=== PATIENT | male | born 1975 | race Caucasian/White ===

== ENCOUNTER 2023-04-29 15:48 | Emergency (ER) | payer OTHER, SELFPAY ==
[2023-04-29 15:55] VITALS: BP 133/95; PULSE 117; RESP 18; TEMP 36.1; O2SAT 100; BMI 32.1
--- NOTE | 2023-04-29 16:11 | ED.GENADULT ---
HPI - General Adult General Chief complaint: Arrhythmia/Palpitations Stated complaint: heart pal, shortness of breath Time Seen by Provider: 04/29/23 15:58 History of Present Illness HPI narrative: Pt here for eval of heart palpitations since 1514 today with SOB. Pt was walking up steps and noticed the symptoms, states he has hx of anxiety so is unsure if this is exacerbating symptoms. Denies fevers, CP, recent illness. 47-year-old man presenting to the emergency department with concern of rapid heart rate that had started about 45 minutes, maybe an hour prior to this interview. He had been walking up the steps and then noticed the symptoms and began to feel more short of breath. Did have some tightness in his chest. Not pleuritic. Not actually with chest pain. No cough or cold symptoms recently. No fevers. Does endorse a history of attacks of anxiety. Generally is without exercise intolerance. No personal or family history of hypertrophic cardiomyopathy or fatal arrhythmias. Does not drink alcohol or take stimulants. No loss of function or sensation peripherally. Related Data Home Medications Medication Instructions Recorded Confirmed escitalopram oxalate 20 mg tablet 20 mg PO QAM 04/29/23 04/29/23 Previous Rx's Medication Instructions Recorded propranolol 20 mg tablet 20 mg PO TID PRN 04/29/23 Palpitations/anxiety #30 tabs Allergies Allergy/AdvReac Type Severity Reaction Status Date / Time No Known Drug Allergies Allergy Verified 04/29/23 15:54 Review of Systems Status of ROS: Reports: 6 or more systems reviewed and unremarkable except as noted in History and below [facility] Social History Smoking Status: Never smoker How often do you have a drink containing alcohol: never AUDIT-C Alcohol total score: 0 Non-prescribed substance use: denies use Exam Narrative: Exam Narrative: Very pleasant. Introspective. Easily conversant. Breathing initially I thought was maybe a little labored but calms. Heart rate initially elevated, frankly tachycardic on an of the room does slow to normal during our conversation. Cranial nerves 2-12 are WNL. Neck is supple without supraclavicular crepitus. Lungs are clear. Heart in regular rate and rhythm without murmur rub or gallop. Normal PMI. No discomfort to palpation over the chest. Moving extremities normally without edema. Negative Homans. EKG shows a sinus tachycardia Const: Vital Signs, click to edit/add: Vital Signs - 24 hr 04/29/23 15:55 04/29/23 17:00 Temperature 97.0 F L Pulse Rate 76 Pulse Rate [Pulse Oximeter] 117 H Respiratory Rate 18 15 Blood Pressure 133/92 H Blood Pressure [Ri ght Upper Arm] 133/95 H Pulse Oximetry 100 94 Oxygen Delivery Me thod Room Air Documenting provider has reviewed patient's vital signs: yes Course Vital Signs Vital signs: Initial Vital Signs Respiratory Effort Normal, Spontaneous, Non-Labored 04/29/23 15:54 Respiratory Depth Normal 04/29/23 15:54 Respiratory Pattern Normal 04/29/23 15:54 Vital Signs Temperature 97.0 F L 04/29/23 15:55 Pulse Rate 117 H 04/29/23 15:55 Respiratory Rate 18 04/29/23 15:55 Blood Pressure 133/95 H 04/29/23 15:55 Pulse Oximetry 100 04/29/23 15:55 Oxygen Delivery Method Room Air 04/29/23 15:55 Temperature 97.0 F L 04/29/23 15:55 Pulse Rate 76 04/29/23 17:00 Respiratory Rate 15 04/29/23 17:00 Blood Pressure 133/92 H 04/29/23 17:00 Pulse Oximetry 94 04/29/23 17:00 Oxygen Delivery Method Room Air 04/29/23 15:55 Medical Decision Making MDM Narrative Medical decision making narrative: After long conversation with Mr. Main I am in agreement with him that the symptoms today are likely related to anxiety. Admittedly this is somewhat a diagnosis of exclusion. Other cardiac risk factors though are not present. Monitored during time in the emergency department without other development. And during conversation could appreciate tachycardia evolving and then slowing. Differential would also include pulmonary embolus or pneumothorax though the symptoms spontaneously resolve and risk of the former would be quite low risk. Doubtful electrolyte abnormalities contributing to symptoms today. EKG overall is reassuring We did discuss potentially doing further evaluation here but symptoms appear to be limited he feels improved in reassured. Discussed management of anxiety. Potential benefit of propranolol? See patient discharge plan ECG Data Attestation: I personally reviewed and interpreted this ECG as follows: (Sinus tachycardia rate of 102. No apparent ischemic changes.) Discharge Plan Discharge Clinical Impression: Anxiety, Sinus tachycardia Patient Disposition: Home, Self-Care Condition: Improved Additional Instructions: Stay well-hydrated. Get quality and regular sleep as you are able. Try to get in a little heart pumping exercise of some sort every day. If having persistent increased heart rate or palpitations that you cannot get to calm with relaxation techniques or distraction or after 10 - 20 minutes of trying these techniques might take propranolol and with reassessment still has not improved, perhaps within an hour, please return for reassessment. Return otherwise for marked increase in persistent lightheadedness or chest pain, shortness of breath. Propranolol is a beta-rei that slows down your heart rate a little and and can therefore help with some of these feelings. Prescriptions: New propranolol 20 mg tablet 20 mg PO TID PRN (Reason: Palpitations/anxiety) Qty: 30 1RF No Action escitalopram oxalate 20 mg tablet 20 mg PO QAM Follow Up/Referrals: Provider,Not a Local [Primary Care Provider] - Stand Alone Forms: [employer] Info Instructions
[2023-04-29 17:00] VITALS: BP 133/92; PULSE 76; RESP 15; O2SAT 94
== END 2023-04-29 16:52 | disposition home or self-care (01) ==
PROVIDERS: Emergency Provider Family Medicine
DX: F41.9 Anxiety disorder, unspecified (principal); R00.0 Tachycardia, unspecified
CPT/HCPCS: 99284